=== PATIENT | female | born 1950 | race Caucasian/White ===

== ENCOUNTER 2020-11-18 11:18 | Outpatient (REF) | payer MEDICARE, SELFPAY ==
--- NOTE | ~2020-11-18 | MM_ITS ---
EXAMINATION: MM SCREENING DIGITAL BREAST TOMOSYNTHESIS, BILATERAL CLINICAL INFORMATION: Screening. Asymptomatic. The lifetime risk of breast cancer based on the Tyrer-Cuzick Model is 8.7%. COMPARISON: Mammography: March 20, 2019 and studies dating back to October 26, 2009 TECHNIQUE: Digital breast tomosynthesis is performed in both the craniocaudal and mediolateral oblique views along with computer-aided detection (CAD). Synthesized 2D images are generated from the tomosynthesis. FINDINGS: There are scattered areas of fibroglandular density (ACR BI-RADS breast composition Category b). There are no significant masses, abnormal calcifications, or other abnormalities. MM/MM tomosynthesis screening BI IMPRESSION: There are no significant changes from prior study. ASSESSMENT: BI-RADS 1: Negative RECOMMENDATION: Routine annual mammography screening. This patient's information was entered into a reminder system with a target due date for their next mammogram.
== END 2020-11-18 11:19 | disposition home or self-care (01) ==
LOC: HO.MAMMO 11:18
PROVIDERS: PCP Internal Medicine; Visit Provider Internal Medicine
DX: Z12.31 Encounter for screening mammogram for malignant neoplasm of breast (principal)
CPT/HCPCS: 77063; 77067

== ENCOUNTER 2021-10-15 07:58 | Emergency (ER) | payer MEDICARE, SELFPAY ==
--- NOTE | ~2021-10-15 | US_ITS ---
EXAMINATION: US VENOUS ULTRASOUND WITH DOPPLER LOWER EXTREMITY, RIGHT CLINICAL INFORMATION: Calf pain. Rule out DVT. COMPARISON: None TECHNIQUE: Ultrasound of the deep veins is performed from the hip to the calf with compression sonography and color and pulse Doppler assessment. Spectral analysis with color-flow imaging is performed. FINDINGS: There is normal venous compression and respiratory variation and augmented flow. The visualized common femoral vein, superficial femoral vein, profunda femoral vein, popliteal vein, and the trifurcation region shows no evidence of deep venous thrombosis. There is no significant popliteal fossa cyst. The contralateral left common femoral vein is patent. US/US venous duplex LE RT IMPRESSION: No DVT demonstrated in the right lower extremity.
--- NOTE | ~2021-10-15 | XR_ITS ---
EXAMINATION: XR KNEE, RIGHT CLINICAL INFORMATION: Knee injury COMPARISON: None TECHNIQUE: Four views of the right knee. FINDINGS: Bone alignment is normal. No fracture or dislocation is seen. The femoral tibial joints are normal. There are small osteophytes at the patellofemoral joint. There is a small osteophyte at the quadriceps tendon insertion to the patella. There is no significant joint effusion. XR/XR knee RT 4V IMPRESSION: Mild degenerative changes.
[2021-10-15 08:05] VITALS: BP 156/89; PULSE 67; RESP 16; TEMP 36.8; O2SAT 97; BMI 25.3
--- NOTE | 2021-10-15 10:14 | ED.GENADULT ---
HPI - General Adult General Chief complaint: General Medical Stated complaint: twisted r leg Time Seen by Provider: 10/15/21 10:04 History of Present Illness HPI narrative: Patient complains of right knee pain after twisting it when she misstepped while walking as well as some right calf pain which started a day or 2 later The injury to the knee took place about 4 days ago Related Data Allergies Allergy/AdvReac Type Severity Reaction Status Date / Time nut - unspecified [nut] Allergy Severe ANAPHYLAXIS Verified 10/15/21 08:04 FRUIT Allergy Severe ANAPHYLAXIS Uncoded 04/23/20 16:55 Raw fruit and nuts Allergy Unknown Anaphylaxis Uncoded 10/15/21 08:04 Review of Systems Review of Systems: Positive for right knee and calf pain after a twisting injury several days Negatives are no fever no chills no dizziness or weakness no fainting feeling faint no headache no neck pain no chest pain no shortness of breath no abdominal pain no back pain no skin rash no numbness or weakness Yes all other systems are reviewed and are negative PMFSH Past Medical History Source: nursing notes reviewed Social History Social History Advance Directives: Yes Advance Directives Information Provided: Yes Advance Directives on File: No Physical Exam ED Vital Signs: Vital Signs - 24 hr 10/15/21 08:05 10/15/21 11:27 Temperature 98.3 F 97.8 F Pulse Rate 67 63 Respiratory Rate 16 18 Blood Pressure 156/89 H 153/85 H Pulse Oximetry 97 97 BMI result Body Mass Index 25.3 General appearance is no acute distress Head is normocephalic atraumatic Neck is supple Respiratory no distress Chest clear to auscultation bilateral Extremities full range of motion x4 The right knee did have some mild tenderness but was not red or swollen, there was no effusion, skin was normal Right calf was tender but not swollen Gait was mildly antalgic but she walks easily Other extremities normal Course Course Course Narrative: Patient was ambulatory with some discomfort in the right knee X-ray did show osteoarthritis but no acute fracture Ultrasound because of her calf pain was negative for any blood clot Discharge Plan Discharge Clinical Impression: Osteoarthritis of right knee Patient Disposition: Home, Self-Care Additional Instructions: X-ray did show some arthritis in the knee but no bony injury Follow with your orthopedist for further evaluation Ultrasound did not show any blood clot so it is likely a muscle strain from when you tripped Return any time any worse condition or any concerns Interventions: ED Discharge Assessment Last Done: 10/15/21 11:38 Discharge Date/Time: 10/15/21 11:38
[2021-10-15 11:27] VITALS: BP 153/85; PULSE 63; RESP 18; TEMP 36.6; O2SAT 97
== END 2021-10-15 11:38 | disposition home or self-care (01) ==
PROVIDERS: Emergency Provider Emergency Medicine; PCP Internal Medicine
DX: M17.11 Unilateral primary osteoarthritis, right knee (principal); M79.661 Pain in right lower leg
CPT/HCPCS: 73564; 93971; 99284

== ENCOUNTER 2021-11-26 11:48 | Outpatient (REF) | payer MEDICARE, SELFPAY ==
--- NOTE | ~2021-11-26 | MM_ITS ---
EXAMINATION: MM SCREENING DIGITAL BREAST TOMOSYNTHESIS, BILATERAL CLINICAL INFORMATION: Screening. Asymptomatic. The lifetime risk of breast cancer based on the Tyrer-Cuzick Model is 10%. COMPARISON: Mammography: 11/18/2020, 03/20/2019, 05/18/2018 TECHNIQUE: Digital breast tomosynthesis is performed in both the craniocaudal and mediolateral oblique views along with computer-aided detection (CAD). Synthesized 2D images are generated from the tomosynthesis. FINDINGS: There are scattered areas of fibroglandular density (ACR BI-RADS breast composition Category b). There are no significant masses, abnormal calcifications, or other abnormalities. Parenchymal pattern is similar to prior studies. No significant changes. MM/MM tomosynthesis screening BI IMPRESSION: No mammographic evidence of malignancy. ASSESSMENT: BI-RADS 1: Negative RECOMMENDATION: Routine annual mammography screening. This patient's information was entered into a reminder system with a target due date for their next mammogram.
== END 2021-11-26 11:49 | disposition home or self-care (01) ==
LOC: HO.MAMMO 11:48
PROVIDERS: Visit Provider Internal Medicine
DX: Z12.31 Encounter for screening mammogram for malignant neoplasm of breast (principal)
CPT/HCPCS: 77063; 77067

== ENCOUNTER 2023-01-06 09:39 | Outpatient (REF) | payer MEDICARE, SELFPAY ==
--- NOTE | ~2023-01-06 | MM_ITS ---
EXAMINATION: MM SCREENING DIGITAL BREAST TOMOSYNTHESIS, BILATERAL CLINICAL INFORMATION: Screening. Asymptomatic. The lifetime risk of breast cancer based on the Tyrer-Cuzick Model is 7%. COMPARISON: Mammography: 11/26/2021, 11/18/2020, 03/20/2019 TECHNIQUE: Digital breast tomosynthesis is performed in both the craniocaudal and mediolateral oblique views along with computer-aided detection (CAD). Synthesized 2D images are generated from the tomosynthesis. FINDINGS: There are scattered areas of fibroglandular density (ACR BI-RADS breast composition Category b). There are no significant masses, abnormal calcifications, or other abnormalities. Parenchymal pattern is similar to prior studies. There is no developing density or architectural abnormality. The axilla and skin contours are unremarkable. No significant changes. MM/MM tomosynthesis screening BI IMPRESSION: No mammographic evidence of malignancy. ASSESSMENT: BI-RADS 1: Negative RECOMMENDATION: Routine annual mammography screening. This patient's information was entered into a reminder system with a target due date for their next mammogram.
== END 2023-01-06 09:40 | disposition home or self-care (01) ==
LOC: HO.MAMMO 09:39
PROVIDERS: PCP Internal Medicine; Visit Provider Internal Medicine
DX: Z12.31 Encounter for screening mammogram for malignant neoplasm of breast (principal)
CPT/HCPCS: 77063; 77067

== ENCOUNTER 2024-02-01 11:23 | Outpatient (REF) | payer MEDICARE, SELFPAY | END 2024-02-01 11:24 | disposition home or self-care (01) | LOC: HO.MAMMO 11:23 | PROVIDERS: PCP Internal Medicine; Visit Provider Internal Medicine | DX: Z12.31 Encounter for screening mammogram for malignant neoplasm of breast (principal) | CPT/HCPCS: 77063; 77067 ==

== ENCOUNTER → 2024-02-01 11:45 | Outpatient (BNV) | payer MEDICARE, SELFPAY | PROVIDERS: PCP Internal Medicine; Visit Provider Radiology Diagnostic Radiology | DX: Z12.31 Encounter for screening mammogram for malignant neoplasm of breast (principal) | CPT/HCPCS: 77063; 77067 ==

== ENCOUNTER 2024-03-05 08:00 | Outpatient (RCR) | payer MEDICARE, SELFPAY | END 2024-03-20 14:16 | disposition home or self-care (01) | LOC: HO.PT 08:00 | PROVIDERS: PCP Internal Medicine; Visit Provider Physician Assistant | DX: M22.2X2 Patellofemoral disorders, left knee (principal) | CPT/HCPCS: 97110; 97112; 97161; 97530; 97535 ==

== ENCOUNTER 2025-03-11 12:14 | Outpatient (REF) | payer MEDICARE, SELFPAY | END 2025-03-11 12:15 | disposition home or self-care (01) | LOC: HO.MAMMO 12:14 | PROVIDERS: PCP Internal Medicine; Visit Provider Internal Medicine | DX: Z12.31 Encounter for screening mammogram for malignant neoplasm of breast (principal) | CPT/HCPCS: 77063; 77067 ==

== ENCOUNTER → 2025-03-11 12:30 | Outpatient (BNV) | payer MEDICARE, SELFPAY | PROVIDERS: PCP Internal Medicine; Visit Provider Internal Medicine | DX: Z12.31 Encounter for screening mammogram for malignant neoplasm of breast (principal) | CPT/HCPCS: 77063; 77067 ==